=== PATIENT | female | born 1935 | race African-American/Black ===

== ENCOUNTER → 2016-09-14 | Outpatient (CLI) | payer MEDICARE ==
[~2016-09-14] MED LIST: ALBU8HFA IH; BENZ-26 PO; OMEP20 PO; TRIA1TAB5 PO
== END | disposition home or self-care (01) ==
LOC: RADPV 09:15
PROVIDERS: ATTEND Orthopaedic Surgery
DX: M17.12 Unilateral primary osteoarthritis, left knee (principal)